=== PATIENT | female | born 1955 | race Caucasian/White ===

== ENCOUNTER 2017-02-18 16:57 | Emergency (ER) | payer OTHER ==
[2017-02-18] MEDS ORDERED: KETOROLAC TROMETHAMINE 60 MG/2 ML VIAL ONE (18:04)
[2017-02-18] MEDS ORDERED: METOCLOPRAMIDE HCL 5 MG/ML 2ML VIAL ONE (18:04)
== END 2017-02-18 18:44 | disposition home or self-care (01) ==
LOC: ED 16:57
DX: M54.12 Radiculopathy, cervical region (principal)
CPT/HCPCS: 99282; 96372 ×2; 99283; J2765; J1885